=== PATIENT | male | born 1995 | race Asian ===

== ENCOUNTER 2023-09-27 17:35 | Emergency (ER) | payer MEDICAID ==
[~2023-09-27] VITALS: Ht 180.3 cm; Wt 72.7 kg
[2023-09-27 17:37] VITALS: BP 136/86; PULSE 86; RESP 16; TEMP 97.8
[2023-09-27] MEDS ORDERED: MOXI3DRO25 OS (20:09)
== END 2023-09-27 20:18 | disposition home or self-care (01) ==
LOC: EMS 17:48
DX: H10.9 Unspecified conjunctivitis (principal); F17.210 Nicotine dependence, cigarettes, uncomplicated; F12.90 Cannabis use, unspecified, uncomplicated
CPT/HCPCS: 99283; Z7502